=== PATIENT | female | born 1985 | race Caucasian/White ===

== ENCOUNTER → 2017-03-17 | Outpatient (CLI) | payer MEDICAID ==
[~2017-03-17] MED LIST: ACETAMINOPHEN325 MG PO; APNO TOP; DERMOPLAST SPRA56 GM TOP; LANSINOH7 GM TOP; MOTRIN800 MG PO; PRENATAL 1+1)(P1 TAB PO; TUCKS1 EACH TOP
== END ==
LOC: LKCL 09:32
DX: Z12.4 Encounter for screening for malignant neoplasm of cervix (principal)
CPT/HCPCS: G0145